=== PATIENT | male | born 1960 | race Caucasian/White ===

== ENCOUNTER 2025-03-10 12:43 | Emergency (ER) | payer OTHER ==
[2025-03-10 13:00] VITALS: TEMP 99; BMI 27.9
[2025-03-10] MEDS ORDERED: morphine SULFATE 4 MG/ML VIAL ONE (14:03)
[2025-03-10] MEDS ORDERED: CEFAZOLIN 1 GM/D5W 1 GM/50 ML BAG ONE (14:03)
[2025-03-10] MEDS: CEFAZOLIN 1 GM in DEXTROSE 5%-WATER - 50 ML IVPB SCH (14:20)
[2025-03-10] MEDS: morphine CARPU-JECT 4 MG/1 ML DISP.SYRIN IVPUSH ONE (14:20)
[2025-03-10 14:25] LABS: ABSOLUTE IMMATURE GRANULOCYTES 0.01 x10^3/uL (0.0-0.031); BASOPHILS # 0.04 x10^3/uL (0.01-0.08); EOSINOPHILS # 0.19 x10^3/uL (0.04-0.54); HEMATOCRIT 43.7 % (40.1-51.0); HEMOGLOBIN 15.4 g/dL (13.7-17.5); MCHC 35.2 g/dl (32.3-36.5); MEAN CELL VOLUME 87.6 fl (79.0-92.2); MEAN PLT VOLUME 8.9 fl (9.4-12.4); MONOCYTE # 0.47 x10^3/uL (0.30-0.82); MONOCYTE % 9.8 % (5.3-12.2); PLATELET COUNT 176 x10^3/uL (163-337); RDW 13.1 % (12.2-16.4)
[2025-03-10 14:32] LABS: INR 1.04 (0.83-1.09); PROTHROMBIN TIME (PATIENT) 11.4 SEC (9.7-13.0)
[2025-03-10 14:35] LABS: ACTIVATED PTT 23.1 SECONDS (25.2-36.5)
[2025-03-10 15:02] LABS: POTASSIUM 3.9 mmol/L (3.5-5.1)
[2025-03-10 15:04] LABS: BLOOD UREA NITROGEN 15.9 mg/dL (7-18); CALCIUM 9.7 mg/dL (8.5-10.1)
[2025-03-10 15:05] LABS: ALBUMIN 3.7 g/dl (3.4-5.0)
[2025-03-10 15:25] VITALS: BP 154/77; PULSE 66; RESP 20
[2025-03-10 15:40] LABS: BILIRUBIN,TOTAL 1.5 mg/dL (0.2-1); CREATININE 0.9 mg/dL (0.55-1.3); TOT PROT 7.3 g/dl (6.4-8.2)
== END 2025-03-10 15:28 | disposition short-term general hospital (02) ==
LOC: JERFT 12:43
PROC: 3E033NZ Introduction of Analgesics, Hypnotics, Sedatives into Peripheral Vein, Percutaneous Approach (ICD-10-PCS; principal; 2025-03-10)
DX: S68.522A Partial traumatic transphalangeal amputation of left thumb, initial encounter (principal); W31.2XXA Contact with powered woodworking and forming machines, initial encounter; Y99.0 Civilian activity done for income or pay
CPT/HCPCS: 36415; 73130-TC-LT-FY; 80053; 85025; 85610; 85730; 99285-25